=== PATIENT | female | born 1930 | race African-American/Black ===

== ENCOUNTER 2019-01-15 18:45 | Emergency (ER) | payer OTHER ==
[~2019-01-15] VITALS: Ht 152.4 cm; Wt 59.0 kg
[2019-01-15] MEDS ORDERED: TYLENOL EXTRA500 MG PO (21:07)
[2019-01-15] MEDS ORDERED: CAPZASIN-HP42.5 GM TOP (21:11)
[2019-01-15 21:20] VITALS: BP 195/61
== END 2019-01-15 21:15 | disposition home or self-care (01) ==
LOC: ER 18:45
DX: M79.641 Pain in right hand (principal); I10 Essential (primary) hypertension; F03.90 Unspecified dementia, unspecified severity, without behavioral disturbance, psychotic disturbance, mood disturbance, and anxiety; Z88.0 Allergy status to penicillin